=== PATIENT | female | born 1995 | race African-American/Black ===

== ENCOUNTER 2025-01-06 19:24 | Emergency (ER) | payer MEDICAID, OTHER ==
[2025-01-06 19:50] VITALS: PULSE 104; O2SAT 99
== END 2025-01-06 22:01 | disposition left against medical advice (07) ==
LOC: ER 19:24
DX: N93.9 Abnormal uterine and vaginal bleeding, unspecified (principal); Z53.21 Procedure and treatment not carried out due to patient leaving prior to being seen by health care provider